=== PATIENT | female | born 1960 | race Caucasian/White ===

== ENCOUNTER → 2021-12-23 | Outpatient (CLI) | payer BC ==
[~2021-12-23] MED LIST: ESTRADIOL0.5 M1 PO; PAXLOVID CO-PA1 EACH PO; PROVERA 2.5MG2.5 MG PO; TAPAZOLE 5MG TAB5 MG PO
[2021-12-23 09:45] LABS: ALBUMIN 4.1 g/dL (3.5-5.0); CALCIUM 9.4 mg/dL (8.3-10.5); TOTAL BILIRUBIN 0.2 mg/dL (0.2-1.2); TOTAL PROTEIN 7.6 g/dL (6.4-8.3)
== END ==
LOC: LAB 09:20
PROVIDERS: Nurse Practitioner
DX: U07.1 COVID-19 (principal)

== ENCOUNTER 2021-12-25 12:48 | Emergency (ER) | payer BC ==
[2021-12-25] MEDS ORDERED: PROVERA 2.5MG2.5 MG PO (13:05)
[2021-12-25] MEDS ORDERED: ESTRADIOL0.5 M1 PO (13:05)
[2021-12-25] MEDS ORDERED: PAXLOVID CO-PA1 EACH PO (13:05)
[2021-12-25] MEDS ORDERED: TAPAZOLE 5MG TAB5 MG PO (13:05)
[2021-12-25 13:26] LABS: BASO # 0.01 K/mm3 (0.02-0.10); EOS # 0.02 K/mm3 (0.04-0.40); EOS % 0.5 % (1.0-5.0); HEMATOCRIT 40.7 % (37.0-47.0); HEMOGLOBIN 14.3 g/dL (12.5-16.0); LYMPH# 1.38 K/mm3 (1.50-4.00); MEAN CELL VOLUME 92 fl (78-100); MEAN CORPUSCULAR HEMOGLOBIN 32 pg (27-31); MEAN CORPUSCULAR HGB CONC 35 g/dL (33-37); MEAN PLATELET VOLUME 9.6 fl (7.4-10.4); MONO # 0.25 K/mm3 (0.20-0.80); NEU # 2.27 K/mm3 (1.40-6.50); PLATELET COUNT 246 K/mm3 (130-400); RED BLOOD COUNT 4.43 M/mm3 (4.10-5.30); RED CELL DISTRIBUTION WIDTH 12.1 % (11.5-14.5); WHITE BLOOD COUNT 3.9 K/mm3 (4.8-10.8)
[2021-12-25 13:36] LABS: ALBUMIN 4.3 g/dL (3.5-5.0)
[2021-12-25 13:37] LABS: POTASSIUM 3.2 mmol/L (3.5-5.1)
[2021-12-25 13:38] LABS: CALCIUM 9.6 mg/dL (8.3-10.5)
[2021-12-25 13:41] LABS: TOTAL BILIRUBIN 0.3 mg/dL (0.2-1.2)
[2021-12-25 15:03] VITALS: BP 148/94
== END 2021-12-25 15:04 | disposition home or self-care (01) ==
LOC: ED 12:48
PROVIDERS: Family Medicine
DX: U07.1 COVID-19 (principal); R11.2 Nausea with vomiting, unspecified; T37.5X5A Adverse effect of antiviral drugs, initial encounter; Z73.0 Burn-out
CPT/HCPCS: J7030